=== PATIENT | male | born 1950 | race Native Hawaiian/Other Pacific Islander ===

== ENCOUNTER → 2017-11-28 07:16 | Outpatient (CLI) | payer MEDICARE, SELFPAY ==
[2017-11-28 08:35] LABS: Add Manual Diff / Slide Review NO; Basophils Percent Auto 0.7 % (0-2); Eosinophils Percent Auto 3.4 % (2-4); Hematocrit 37.6 % (41-53); Hemoglobin 12.7 g/dL (13.5-17.5); Lymphocytes Percent Auto 16.5 % (25-40); Mean Corpuscular HGB Conc 33.7 % (30-36); Mean Corpuscular Hemoglobin 31.2 PG (26-34); Mean Corpuscular Volume 92.5 fL (80-100); Neutrophils Absolute Auto 6700 /uL (3000-5900); Neutrophils Percent Auto 66.4 % (50-75); Platelet Count 250 X10^3/uL (150-400); Red Blood Cell Count 4.07 X10^6/uL (4.5-5.9); Red Cell Distribution Width 14.6 % (11.6-14.8); White Blood Cell Count 10.1 X10^3/uL (4.5-11.0)
[2017-11-28 08:49] LABS: Alanine Aminotransferase 24 IU/L (21-72); Albumin 4.1 g/dL (3.5-5.0); Albumin Globulin Ratio 1.2 (1.0-2.8); Alkaline Phosphatase 85 U/L (38-126); Aspartate Aminotransferase 17 IU/L (17-59); BUN Creatinine Ratio 22.9 (6-22); Bilirubin Total 0.4 mg/dL (0.2-1.3); Blood Urea Nitrogen 16 mg/dL (9-20); C-Reactive Protein Quant 7.9 mg/dL (<1.0); Calcium 9.5 mg/dL (8.4-10.2); Carbon Dioxide 30 mmol/L (22-32); Chloride 102 mmol/L (98-107); Estimated Glomerular Filt Rate > 60.0 mL/min (>60); Globulin 3.4 g/dL (1.7-4.1); Glucose 92 mg/dL (80-110); HEMOLYSIS 22 (0-50); Potassium 4.1 mmol/L (3.4-5.1); Sodium 139 mmol/L (137-145); Total Protein 7.5 g/dL (6.3-8.2)
[2017-11-28 09:03] LABS: Erythrocyte Sedimentation Rate 66 MM/HR (0-15)
== END ==
PROVIDERS: PCP Internal Medicine; Visit Provider Physician Assistant Medical
DX: M05.79 Rheumatoid arthritis with rheumatoid factor of multiple sites without organ or systems involvement (principal)
CPT/HCPCS: 36415; 80053; 85025; 85651; 86140

== ENCOUNTER → 2017-12-31 08:11 | Outpatient (CLI) | payer MEDICARE, SELFPAY ==
[2017-12-31 08:59] LABS: Add Manual Diff / Slide Review NO; Basophils Percent Auto 1.1 % (0-2); Eosinophils Percent Auto 2.4 % (2-4); Hematocrit 37.6 % (41-53); Hemoglobin 12.8 g/dL (13.5-17.5); Lymphocytes Percent Auto 23.8 % (25-40); Mean Corpuscular HGB Conc 34.1 % (30-36); Mean Corpuscular Hemoglobin 31.4 PG (26-34); Mean Corpuscular Volume 92.1 fL (80-100); Monocytes Percent Auto 9.7 % (3-14); Neutrophils Absolute Auto 4900 /uL (3000-5900); Platelet Count 368 X10^3/uL (150-400); Red Blood Cell Count 4.09 X10^6/uL (4.5-5.9); White Blood Cell Count 7.8 X10^3/uL (4.5-11.0)
[2017-12-31 09:11] LABS: Alanine Aminotransferase 21 IU/L (21-72); Albumin 4.3 g/dL (3.5-5.0); Albumin Globulin Ratio 1.2 (1.0-2.8); Alkaline Phosphatase 76 U/L (38-126); Aspartate Aminotransferase 18 IU/L (17-59); BUN Creatinine Ratio 28.6 (6-22); Bilirubin Total 0.5 mg/dL (0.2-1.3); Blood Urea Nitrogen 20 mg/dL (9-20); C-Reactive Protein Quant 8.2 mg/dL (<1.0); Calcium 9.7 mg/dL (8.4-10.2); Carbon Dioxide 28 mmol/L (22-32); Chloride 105 mmol/L (98-107); Estimated Glomerular Filt Rate > 60.0 mL/min (>60); Globulin 3.6 g/dL (1.7-4.1); Glucose 108 mg/dL (80-110); HEMOLYSIS < 15 (0-50); Sodium 144 mmol/L (137-145); Total Protein 7.9 g/dL (6.3-8.2)
[2017-12-31 09:27] LABS: Erythrocyte Sedimentation Rate 76 MM/HR (0-15)
[2018-01-03 12:38] LABS: QuantiFERON TB NEGATIVE (Negative)
== END ==
PROVIDERS: Family Provider Internal Medicine; PCP Internal Medicine; Visit Provider Specialist/Technologist Athletic Trainer
DX: M05.79 Rheumatoid arthritis with rheumatoid factor of multiple sites without organ or systems involvement (principal)
CPT/HCPCS: 36415; 80053; 84550; 85025; 85651; 86140; 86480; 86704; 86705; 86706; 86707; 87340; 87350

== ENCOUNTER 2018-05-25 21:05 | Inpatient (IN) | payer MEDICARE, SELFPAY ==
[2018-05-25 21:06] VITALS: PULSE 93; RESP 14; TEMP 36.7; O2SAT 100
[2018-05-25] MEDS: ONDANSETRON 4 MG/2 ML INJ IV (21:50)
[2018-05-25 22:02] VITALS: BP 148/80; PULSE 87; RESP 18; O2SAT 98
[2018-05-25 22:11] LABS: Add Manual Diff / Slide Review NO; Basophils Absolute Auto 0 /uL (0-100); Basophils Percent Auto 0.3 % (0-2); Eosinophils Absolute Auto 0 /uL (0-450); Eosinophils Percent Auto 0.3 % (2-4); Lymphocytes Absolute Auto 200 /uL (1100-4500); Lymphocytes Percent Auto 1.2 % (25-40); Mean Corpuscular HGB Conc 33.4 % (30-36); Mean Corpuscular Hemoglobin 31.7 PG (26-34); Mean Corpuscular Volume 94.9 fL (80-100); Monocytes Absolute Auto 900 /uL (0-900); Neutrophils Absolute Auto 13900 /uL (1500-7000); Neutrophils Percent Auto 92.2 % (50-75); Platelet Count 270 X10^3/uL (150-400); Red Blood Cell Count 4.74 X10^6/uL (4.5-5.9); Red Cell Distribution Width 13.8 % (11.6-14.8); White Blood Cell Count 15.1 X10^3/uL (4.5-11.0)
[2018-05-25 22:13] LABS: INR 1.1 (0.9-1.3); Prothrombin Time 13.1 SECONDS (10.1-12.7)
[2018-05-25 22:16] LABS: PTT Partial Thromboplastin Tim 29 SECONDS (26.4-36.2)
[2018-05-25] MEDS: PANTOPRAZOLE 40 MG VIAL IV (22:40)
[2018-05-25] MEDS: KETOROLAC 60 MG/2 ML VIAL 30 MG IV (22:40)
[2018-05-25] MEDS: SODIUM CHLORIDE 0.9% 1,000 ML 1000 ML IV (22:41)
--- NOTE | 2018-05-25 22:45 | ED_ITS ---
HPI - Nausea/Vomiting/Diarrhea General Chief complaint: Nausea/Vomiting/Diarrhea Stated complaint: nausea / vomiting Time Seen by Provider: 05/25/18 21:41 Source: patient and RN notes reviewed Mode of arrival: ambulatory Limitations: no limitations History of Present Illness HPI Narrative: patient is a 67-year-old male who presents with abdominal pain nausea vomiting and diarrhea ongoing for the last 5 days. He has had nonbloody diarrhea numerous episodes along with numerous episodes of vomiting. He has some epigastric pain. no fever or chills. He has not had any recent travel. No one else is sick. Unable tolerate any fluids. MD complaint: nausea, vomiting, diarrhea and abdominal pain Onset (ago): day(s) (5) Description of Vomiting: watery Description of Diarrhea: watery Location of pain: epigastric Severity: moderate Quality: cramping Pain Consistency: constant Relieving factors: none Exacerbating factors: none Related Data Home Medications Medication Instructions Recorded Confirmed azathioprine 100 mg PO DAILY 05/25/18 05/25/18 leflunomide 20 mg PO DAILY 05/25/18 05/25/18 Allergies Allergy/AdvReac Type Severity Reaction Status Date / Time No Known Drug Allergies Allergy Verified 05/25/18 21:09 Review of Systems Review of Systems GENERAL: Denies chills, fatigue, malaise, fever, sweats, travel HEENT: Denies sinus pain, ear pain, sore throat, difficulty swallowing, neck pain RESPIRATORY: Denies dyspnea, cough, wheezing, hemoptysis, sputum. CARDIOVASCULAR: Denies chest pain, palpitations, orthopnea, edema GASTROINTESTINAL: See HPI : Denies dysuria, frequency, incontinence, hematuria, urinary retention, flank pain. MUSCULOSKELETAL: Denies weakness, joint pain, or bony pain SKIN: No rash, no erythema, no pruritus NEUROLOGIC: Denies weakness, dizziness, headache, numbness, change in speech, confusion PSYCHIATRIC: No concerning psychosocial issues. 12 point review of systems is negative except for those stated above and HPI [facility] Medical History Diverticulitis (Acute) Rheumatoid arthritis (Acute) Family History: Reviewed 05/26/18 by MARGARITA Encinas Social History household members: spouse and children Smoking Status: Former smoker alcohol intake: never substance use type: does not use Exam Initial Vital Signs Initial Vital Signs: Vital Signs Temperature 98.1 F 05/25/18 21:06 Pulse Rate 93 H 05/25/18 21:06 Respiratory Rate 14 05/25/18 21:06 Pulse Oximetry 100 05/25/18 21:06 GENERAL: appears in mild pain distress HEENT: Head atraumatic,EOMI, pupils reactive, face symmetric, dry mucous membranes CARDIOVASCULAR: Regular rate and rhythm without murmurs, rubs or gallops. RESPIRATORY: Breath sounds equal bilaterally, no wheezes rales or rhonchi. ABDOMEN: Soft, slightly obese mild epigastric pain no guarding or rebound no right upper quadrant pain no lower abdominal pain EXTREMITIES: Normal range of motion, no clubbing or edema. Neurovascularly intact NEUROLOGICAL: Alert and oriented x4.Normal gait and speech. SKIN: Warm, dry, no laceration, no petechiae, no rashes or lesions. Course Orders Ordered: ED Orders 05/25/18 21:18 EKG-12 Lead Stat 05/25/18 21:50 Complete Blood Count AUTO DIFF Stat Partial Thromboplastin Time Stat Prothrombin Time INR Stat 05/25/18 22:32 Comprehensive Metabolic Panel Stat Lipase Stat 05/25/18 23:55 Ictotest Urine Stat Urine Microscopic Stat 05/26/18 00:10 US abdomen complete Stat 05/26/18 01:28 Consult to Dietitian, Adult Routine 05/26/18 01:29 Education, smoking cessation ONGOING 05/26/18 06:00 BMP [Basic Metabolic Panel] Routine Complete Blood Count AUTO DIFF Routine Lipase Routine Triglycerides Routine Lactated Ringer's (Lactated Ringers) 1,000 mls @ 150 mls/hr IV CONT JULIO Last Admin: 05/26/18 02:43 Dose: 150 mls/hr Oxycodone HCl (Percolone) 5 mg PO Q6H PRN PRN Reason: Pain, Moderate (4-6) Discontinued Medications Sodium Chloride (Normal Saline 0.9%) 1,000 mls @ 1,000 mls/hr IV BOLUS ONE Stop: 05/25/18 23:36 Last Infusion: 05/25/18 23:39 Dose: 0 mls/hr Admin: 05/25/18 22:41 Dose: 1,000 mls/hr Ketorolac Tromethamine (Toradol) 30 mg IV NOW ONE Stop: 05/25/18 22:38 Last Admin: 05/25/18 22:40 Dose: 30 mg Ondansetron HCl (Zofran) 4 mg IV NOW ONE Stop: 05/25/18 21:18 Last Admin: 05/25/18 21:50 Dose: 4 mg Pantoprazole Sodium (Protonix) 40 mg IV NOW ONE Stop: 05/25/18 22:38 Last Admin: 05/25/18 22:40 Dose: 40 mg Vital Signs - 8 hr 05/25/18 21:06 05/25/18 22:02 05/25/18 23:03 Temperature 98.1 F Pulse Rate 93 H 87 93 H Respiratory Rate 14 18 18 Blood Pressure Blood Pressure [Left Arm] 148/80 H 123/66 Pulse Oximetry 100 98 99 05/25/18 23:54 05/26/18 00:23 05/26/18 00:51 Temperature 98.1 F Pulse Rate 93 H 93 H 97 H Respiratory Rate 16 16 16 Blood Pressure Blood Pressure [Left Arm] 104/54 L 108/68 Pulse Oximetry 99 99 97 05/26/18 01:05 05/26/18 02:47 Temperature 99.6 F Pulse Rate 102 H Respiratory Rate 16 Blood Pressure 128/73 Blood Pressure [Left Arm] Pulse Oximetry 97 97 MDM - Nausea/Vomiting/Diarrhea Lab Data Attestation: I reviewed the patient's lab results. Result diagrams: 05/25/18 21:50 05/25/18 22:32 Lab Results 05/25/18 05/25/18 05/25/18 Range/Units 21:50 21:50 22:32 WBC 15.1 H (4.5-11.0) X10^3/uL RBC 4.74 (4.5-5.9) X10^6/uL Hgb 15.0 (13.5-17.5) g/dL Hct 45.0 (41-53) % MCV 94.9 (80-100) fL MCH 31.7 (26-34) PG MCHC 33.4 (30-36) % RDW 13.8 (11.6-14.8) % Plt Count 270 (150-400) X10^3/uL Neut % (Auto) 92.2 H (50-75) % Lymph % (Auto) 1.2 L (25-40) % [place] % (Auto) 6.0 (3-14) % Eos % (Auto) 0.3 L (2-4) % Baso % (Auto) 0.3 (0-2) % Neut # (Auto) 62381 H (9888-4418) /uL Lymph # (Auto) 200 L (7204-4277) /uL [place] # (Auto) 900 (0-900) /uL Eos # (Auto) 0 (0-450) /uL Baso # (Auto) 0 (0-100) /uL PT 13.1 H (10.1-12.7) SECONDS INR 1.1 (0.9-1.3) APTT 29 (26.4-36.2) SECONDS Sodium 140 (137-145) mmol/L Potassium 3.5 (3.4-5.1) mmol/L Chloride 102 (98-107) mmol/L Carbon Dioxide 23 (22-32) mmol/L BUN 22 H (9-20) mg/dL Creatinine 0.70 (0.66-1.25) mg/dL Estimated GFR > 60.0 (>60) mL/min BUN/Creatinine Ratio 31.4 H (6-22) Glucose 123 H (80-110) mg/dL Calcium 10.0 (8.4-10.2) mg/dL Total Bilirubin 0.8 (0.2-1.3) mg/dL AST 21 (17-59) IU/L ALT 25 (21-72) IU/L Alkaline Phosphatase 78 (38-126) U/L Total Protein 8.3 H (6.3-8.2) g/dL Albumin 4.5 (3.5-5.0) g/dL Globulin 3.8 (1.7-4.1) g/dL Albumin/Globulin Ratio 1.2 (1.0-2.8) Lipase 3777 H (23-300) U/L Urine Ictotest (Negative) Urine RBC (0-5/HPF) Urine WBC (0-5/HPF) Urine Bacteria (None) Urine Mucus (Negative) Ur Culture Indicated? 05/25/18 Range/Units 23:55 WBC (4.5-11.0) X10^3/uL RBC (4.5-5.9) X10^6/uL Hgb (13.5-17.5) g/dL Hct (41-53) % MCV (80-100) fL MCH (26-34) PG MCHC (30-36) % RDW (11.6-14.8) % Plt Count (150-400) X10^3/uL Neut % (Auto) (50-75) % Lymph % (Auto) (25-40) % [place] % (Auto) (3-14) % Eos % (Auto) (2-4) % Baso % (Auto) (0-2) % Neut # (Auto) (2666-1222) /uL Lymph # (Auto) (2239-8745) /uL [place] # (Auto) (0-900) /uL Eos # (Auto) (0-450) /uL Baso # (Auto) (0-100) /uL PT (10.1-12.7) SECONDS INR (0.9-1.3) APTT (26.4-36.2) SECONDS Sodium (137-145) mmol/L Potassium (3.4-5.1) mmol/L Chloride (98-107) mmol/L Carbon Dioxide (22-32) mmol/L BUN (9-20) mg/dL Creatinine (0.66-1.25) mg/dL Estimated GFR (>60) mL/min BUN/Creatinine Ratio (6-22) Glucose (80-110) mg/dL Calcium (8.4-10.2) mg/dL Total Bilirubin (0.2-1.3) mg/dL AST (17-59) IU/L ALT (21-72) IU/L Alkaline Phosphatase (38-126) U/L Total Protein (6.3-8.2) g/dL Albumin (3.5-5.0) g/dL Globulin (1.7-4.1) g/dL Albumin/Globulin Ratio (1.0-2.8) Lipase (23-300) U/L Urine Ictotest Negative (Negative) Urine RBC 0-1/hpf (0-5/HPF) Urine WBC 0-1/hpf (0-5/HPF) Urine Bacteria None seen (None) Urine Mucus 2+ H (Negative) Ur Culture Indicated? Cult not indicated Urine Dip Bedside Urine Glucose Negative Bedside Urine Bilirubin + 1 Bedside Urine Ketone ++ 40 Urine Specific [place] 1.030 Bedside Urine Occult Blood +/- Bedside Urine pH 6.0 Bedside Urine Protein + 30 Bedside Urine Urobilinogen - Negative Bedside Urine Nitrite - Negative Bedside Urine Leukocytes - Negative Esterase Imaging Data US - abdomen: Radiologist's impression: biofuels manager report: Gallbladder wall thickness 2.6 mm no neri cholecystic fluid no stones normal size extrahepatic bile ducts mildly dilated. CBD is 7.2 mm. Conclusion mildly dilated common bile duct measuring 7.2 mm. MDM Narrative Medical decision making narrative: Patient has a normal bilirubin and normal LFTs periods mildly dilated common bile duct on ultrasound. Patient is a nondrinker. Cause of pancreatitis: azathioprine, possible Choledocholithiasis: Patient has mild dilated common bile duct but no elevated bilirubin, and no stones identified in gallbladder Alcohol considered unlikely because patient denies drinking though still possible Patient overall is feeling much better. He is able to eat some ice chips which he says helps tremendously. HospitalistMally accepts the patient. Discharge Plan Departure Patient Disposition: Admitted As Inpatient Clinical Impression: Acute pancreatitis, Urinary tract infection Discharge Date/Time: 05/26/18 01:10 Interventions: ED Discharge Assessment Last Done: 05/26/18 01:01 Admit Date/Time: 05/26/18 00:46 Admit Provider: Antwon Bal
[2018-05-25 22:49] LABS: Alanine Aminotransferase 25 IU/L (21-72); Albumin 4.5 g/dL (3.5-5.0); Albumin Globulin Ratio 1.2 (1.0-2.8); Alkaline Phosphatase 78 U/L (38-126); Aspartate Aminotransferase 21 IU/L (17-59); BUN Creatinine Ratio 31.4 (6-22); Bilirubin Total 0.8 mg/dL (0.2-1.3); Blood Urea Nitrogen 22 mg/dL (9-20); Carbon Dioxide 23 mmol/L (22-32); Chloride 102 mmol/L (98-107); Estimated Glomerular Filt Rate > 60.0 mL/min (>60); Globulin 3.8 g/dL (1.7-4.1); Glucose 123 mg/dL (80-110); HEMOLYSIS 17 (0-50); Potassium 3.5 mmol/L (3.4-5.1); Sodium 140 mmol/L (137-145); Total Protein 8.3 g/dL (6.3-8.2)
[2018-05-25 22:57] LABS: Lipase 3777 U/L (23-300)
[2018-05-25 23:03] VITALS: BP 123/66; PULSE 93; RESP 18; O2SAT 99
[2018-05-25 23:54] VITALS: BP 104/54; PULSE 93; RESP 16; O2SAT 99
[2018-05-25 23:58] LABS: Bacteria Urine None Seen
[2018-05-26] VITALS (12 sets, daily range): BP systolic 106–152; BP diastolic 68–90; PULSE 80–102; RESP 16–18; TEMP 36.7–37.6; O2SAT 96–100; BMI 29.9
--- NOTE | 2018-05-26 00:10 | DI.US.S_ITS ---
PROCEDURE: US ABDOMEN COMPLETE INDICATIONS: ruq pain with pancreatitis TECHNIQUE: Real-time scanning was performed of the abdominal and retroperitoneal organs, with image documentation. COMPARISON: [facility], CT, ABDOMEN WITH CONTRAST, 05/24/2014, 8:53. FINDINGS: Liver: Liver is normal in size and homogeneous in echotexture. Gallbladder: No gallstones. No gallbladder wall thickening, pericholecystic fluid or sonographic Mckenzie's sign. Biliary ducts: Intrahepatic bile ducts are non-dilated. Extrahepatic bile duct caliber measures 7 mm. Normal is 6-7 mm or less in diameter, or 10 mm or less post-cholecystectomy. Pancreas: Obscured by overlying bowel gas. Spleen: Spleen is normal in size and homogeneous in echotexture. Kidneys: Kidneys are normal in size and echotexture. Right kidney measures 11.5 cm long; left kidney measures 11.7 cm long. No hydronephrosis or nephrolithiasis. No solid masses. Aorta: Aorta is obscured by overlying bowel gas. Iliacs: Proximal common iliac arteries are obscured by overlying bowel gas. IVC: Intrahepatic inferior vena cava is patent. Miscellaneous: No free abdominal fluid. IMPRESSION: 1. Normal ultrasound appearance of the liver. No gallstones. 2. Prominent common bile duct. Please correlate with serum bilirubin. 3. Pancreas, aorta and proximal common duct arteries are obscured by overlying bowel gas. No significant discrepancy with the shift commander radiology preliminary report. Dictated by: Marylou Smith M.D. on 05/26/2018 at 10:31 Approved by: Marylou Smith M.D. on 05/26/2018 at 10:35
[2018-05-26 00:16] LABS: Culture Indicated Urine Cult Not Indicated; Ictotest Urine Negative (Negative); Mucus Urine 2+ (Negative); RBC Urine 0-1/HPF (0-5/HPF); WBC Urine 0-1/HPF (0-5/HPF)
--- NOTE | 2018-05-26 01:33 | PM.HP.1 ---
History of Present Illness Chief complaint: nausea / vomiting Narrative: The patient is a 67 y/o male who presents to the ED on 05/25/2018 with abdominal pain. Symptom onset is acute, initially noted on 05/21/2017d, progressively worsening. Abdominal pain localized to the epigastric region. Described as constant and of variable intensity. At worse, pain noted to be 8/10. No radiation to the back, extremities, neck or jaw. Associated symptoms include nausea , vomiting (10+ episodes per day, BN, bilious), diarrhea (5 total episodes, no signs of blood loss per rectum), decreased appetite, and inability to tolerate food or fluid. Denies fever and chills. No similar events in the past. Pain relieved by sitting upright or having his small dog sit on top of the abdomen. Did not take any OTC meds for pain relief. No personal or family history of pancreatits, gall bladder disease, or alcohol abuse. Denies abdominal trauma. Currently on immunosuppression with azathioprine and leflunomide for rheumatoid arthritis. Reports using leflunomide for a number of years. Patient recently started taking azathioprine at the beginning of the year. Prior to that he was on Humara for a number of months, but was struggling with discomfort of an injectable medications and for this reason was switched to azathioprine. Initial labs revealed a lipase of 3777. No other evidence of transaminitis. Patient is unable to recall the dose or how he is supposed to be taking the medication. Per ED verification, the dose of azathioprine listed 100 mg PO daily; however, patient may have been taking this medication twice a day. Will need to verify in the morning. PMH: Diverticulitis, RA, chronic immunosuppression (x4-5 yrs), OA, PRIOR tobacco dependence, cannabis use PSH: No prior surgical history reported FHx: Father (D) - diverticulitis, PUD; Mother (D) - dementia SHx: , lives w/ in the home. Works at [employer]. Prior h/o tobacco use, since teenage years until 11 yrs ago (intermittently), 1/2 ppd. No prior h/o heavy EtOH consumption. Reports drinking 2 beers weekly for a number of years, quit 2 yrs ago. Smokes cannabis daily. Allergies: NKDA Patient History Medical History Diverticulitis (Acute) Rheumatoid arthritis (Acute) Family & Social History Family History: Reviewed 05/26/18 by MARGARITA Encinas Social History: household members spouse,children Prior Living Arrangements RV Safety & Behavioral: Feels Safe in Current Yes Environment Been Physically Hurt or No Threatened By a Person Suicidal Ideation Description None Suicide Plan Description No Plan Tobacco & Substance use: Smoking Status Former smoker alcohol intake frequency holiday/special occasion Substance Use Type does not use Meds Home Medications Medication Instructions Recorded Confirmed Type azathioprine 100 mg PO DAILY 05/25/18 05/25/18 History leflunomide 20 mg PO DAILY 05/25/18 05/25/18 History Allergies Allergy/AdvReac Type Severity Reaction Status Date / Time No Known Drug Allergies Allergy Verified 05/25/18 21:09 Review of Systems Review of Systems All systems reviewed & are unremarkable except as noted in HPI and below Exam Vital Signs (past 8 hours): - 05/25/18 21:06 05/25/18 22:02 05/25/18 23:03 Temperature 98.1 F Pulse Rate 93 H 87 93 H Respiratory Rate 14 18 18 Blood Pressure Blood Pressure [Left Arm] 148/80 H 123/66 Pulse Oximetry 100 98 99 05/25/18 23:54 05/26/18 00:23 05/26/18 00:51 Temperature 98.1 F Pulse Rate 93 H 93 H 97 H Respiratory Rate 16 16 16 Blood Pressure Blood Pressure [Left Arm] 104/54 L 108/68 Pulse Oximetry 99 99 97 05/26/18 01:05 Temperature 99.6 F Pulse Rate 102 H Respiratory Rate 16 Blood Pressure 128/73 Blood Pressure [Left Arm] Pulse Oximetry 97 Oxygen Delivery Method Room Air Narrative Exam Narrative: Constitutional: NAD Neurologic: AOx3, no focal neurological deficits, poor memory recall Head: NC, AT Eyes: PERRL, EOMI, no scleral icterus Ears: external ears normal Nose: external nose normal, no rhinorrhea or epistaxis Throat: dry MM, oropharynx w/o exudate Neck: no masses, lymphadenopathy, or JVD Chest / Respiratory: equal chest rise, unlabored respiratory effort, breath sounds diminished Heart / CV: S1S2 Abdomen / GI: round, soft, tenderness of epigastric region, no distention, no guarding or rebound tenderness no periumbilical or flan ecchymosis : no suprapubic tenderness, no CVA Peripheral / Vascular: warm to touch, DP and PT pulses palpable, no edema Musc: full ROM of upper and lower extremities, adequate muscle tone and bulk Skin: no ecchymosis or suspicious lesions / ulcers Objective Labs Result Diagrams: 05/25/18 21:50 05/25/18 22:32 Labs: Laboratory Results - last 24 hr 05/25/18 05/25/18 05/25/18 21:50 21:50 22:32 WBC 15.1 H RBC 4.74 Hgb 15.0 Hct 45.0 MCV 94.9 MCH 31.7 MCHC 33.4 RDW 13.8 Plt Count 270 Neut % (Auto) 92.2 H Lymph % (Auto) 1.2 L [place] % (Auto) 6.0 Eos % (Auto) 0.3 L Baso % (Auto) 0.3 Neut # (Auto) 54029 H Lymph # (Auto) 200 L [place] # (Auto) 900 Eos # (Auto) 0 Baso # (Auto) 0 PT 13.1 H INR 1.1 APTT 29 Sodium 140 Potassium 3.5 Chloride 102 Carbon Dioxide 23 BUN 22 H Creatinine 0.70 Estimated GFR > 60.0 BUN/Creatinine Ratio 31.4 H Glucose 123 H Calcium 10.0 Total Bilirubin 0.8 AST 21 ALT 25 Alkaline Phosphatase 78 Total Protein 8.3 H Albumin 4.5 Globulin 3.8 Albumin/Globulin Ratio 1.2 Lipase 3777 H Urine Ictotest Urine RBC Urine WBC Urine Bacteria Urine Mucus Ur Culture Indicated? 05/25/18 23:55 WBC RBC Hgb Hct MCV MCH MCHC RDW Plt Count Neut % (Auto) Lymph % (Auto) [place] % (Auto) Eos % (Auto) Baso % (Auto) Neut # (Auto) Lymph # (Auto) [place] # (Auto) Eos # (Auto) Baso # (Auto) PT INR APTT Sodium Potassium Chloride Carbon Dioxide BUN Creatinine Estimated GFR BUN/Creatinine Ratio Glucose Calcium Total Bilirubin AST ALT Alkaline Phosphatase Total Protein Albumin Globulin Albumin/Globulin Ratio Lipase Urine Ictotest Negative Urine RBC 0-1/hpf Urine WBC 0-1/hpf Urine Bacteria None seen Urine Mucus 2+ H Ur Culture Indicated? Cult not indicated Assessment & Plan Plan: Assessment/Plan Narrative: Acute pancreatitis, mild Suspected to be drug induced, azathioprine. Thiopurines have predisposition towards pancreatitis. Patient may also be taking a higher dose than prescribed errouneously. No infection or necrosis. Presented with abdominal pain. Elevated lipase of 3777. Abdominal U/S done in ED, results pending, per ED report gallbladder normal. No evidence of organ failure on presentation. No local or systemic complications. Denies fever. WBC 15.1. HR elevated, VS otherwise WNL. - Telemetry monitoring x24 hrs, then aggressive d/c if stable - Aggressive fluid rescusitation w/ LR at 150 ml / hr for a goal of 2.5 to 4L in first 24 hours - Correct e-lyte / metabolic abnormalities - Pain control w/ oxycodone IR 5 mg Q6H prn - Bowel rest. NPO, ok for ice chips. If has persistent N/V then will make strict NPO. - AM Labs: triglycerides, CBC, Lipase, BMP - D/C toxic meds: azathioprine - Abdominal U/S done in ED (gallbladder WNL), final read pending, to follow-up / review - Consider follow-up CT of the abdomen if no clinical improvement in 72 hours Nausea and Bilious Vomiting No episodes since arrival to the ED - Anti-emetics (zofran prn), IVF, bowel rest Chronic immunosuppression (w/ azathioprine and leflunomide) 2/2 underlying h/o of RA, recently started on azathioprine (2-3 weeks ago) - Need to verify medication doses in A.M. w/ patient's pharmacy - Hold both medications at this time Code status discussed. Full Code. No formal health directive. Designates as a surrogate decision maker. VTE prophylaxis w/ SCDs Quality VTE Deep Vein Thrombosis/Pulmonary Embolism Present on Admission: No
--- NOTE | 2018-05-26 01:48 | PC.NURSE ---
Admission note: Received pt from ED in a wheelchair. Pt transferred himself to bed. Oriented pt to room including call light, white board, phone use, and NPO status. Pt AxOX4, during assessment pt reports that he's had an unintentional weight loss of an estimated 20lbs in the last 3 months and that he eats only a 6 inch [employer] sub every day. Pt was unsure of his actual height and weight and reports that he has difficulties with his primary care provider and therefore avoids routine care. Pt also reports that he feels the need to urinate frequently but that when he initiates his stream he does not have a significant output. Pt denies prostate problems but stated he didn't know his urination habits were of concern. Pt denies pain and nausea at this time.
[2018-05-26] MEDS: LACTATED RINGERS 1,000 ML 150 ML IV ×4 (02:43→22:23)
[2018-05-26 06:01] LABS: Add Manual Diff / Slide Review NO; Basophils Absolute Auto 0 /uL (0-100); Basophils Percent Auto 0.2 % (0-2); Eosinophils Absolute Auto 0 /uL (0-450); Eosinophils Percent Auto 0.2 % (2-4); Hematocrit 36.8 % (41-53); Hemoglobin 12.6 g/dL (13.5-17.5); Lymphocytes Absolute Auto 300 /uL (1100-4500); Mean Corpuscular HGB Conc 34.1 % (30-36); Mean Corpuscular Hemoglobin 31.8 PG (26-34); Mean Corpuscular Volume 93.3 fL (80-100); Monocytes Absolute Auto 800 /uL (0-900); Monocytes Percent Auto 7.5 % (3-14); Neutrophils Absolute Auto 10000 /uL (1500-7000); Neutrophils Percent Auto 89.1 % (50-75); Platelet Count 229 X10^3/uL (150-400); Red Blood Cell Count 3.95 X10^6/uL (4.5-5.9); Red Cell Distribution Width 13.6 % (11.6-14.8); White Blood Cell Count 11.3 X10^3/uL (4.5-11.0)
[2018-05-26 06:05] LABS: BUN Creatinine Ratio 25.6 (6-22); Blood Urea Nitrogen 23 mg/dL (9-20); Carbon Dioxide 24 mmol/L (22-32); Chloride 104 mmol/L (98-107); Estimated Glomerular Filt Rate > 60.0 mL/min (>60); Glucose 101 mg/dL (80-110); HEMOLYSIS < 15 (0-50); Potassium 3.5 mmol/L (3.4-5.1); Sodium 137 mmol/L (137-145); Triglycerides 86 mg/dL (35-150)
[2018-05-26 06:17] LABS: Lipase 3248 U/L (23-300)
--- NOTE | 2018-05-26 10:10 | PC.NURSE ---
)0940 Pt oob to brp, did not use call light, Pt had a very sml amt of pale tanish colored BM. very odorous, guiac +. Pt denies pain, BS hyper active, Pt states has been taking in ice chips thru out the noc shift. 1000 Dr Marie updated of guiac + stool this AM, states Pt may have few ice chips.
--- NOTE | 2018-05-26 10:40 | PM.EVENT ---
Date Patient Seen: 05/26/18 Chart reviewed patient seen and examined. Patient is a 67-year-old male admitted for acute pancreatitis. Review of the abdominal ultrasound shows no evidence of gallstones. Patient continues to have some abdominal discomfort. His major complaint today is feeling thirsty and he is requesting ice chips. His lipase is still elevated however improving. Will continue to keep him NPO continue IV fluids, pain medications and recheck labs in the morning.
--- NOTE | 2018-05-26 12:02 | CM.DANOTE ---
Discharge Planning/Care Management CM Discharge Assessment Start: 05/26/18 11:58 Freq: Status: Active Protocol: Document 05/26/18 11:59 (Rec: 05/26/18 12:02 [email or web address]) Discharge Planning Assessment Assigned Transit Coach Operator ANTONINA Hannon Advance Directives? No History Provided By Patient Medical Record Has Patient been admitted in last 30 No days? Prior Living Arrangements RV Household Members spouse children Type of transporation used prior to Drives own vehicle admit Independent with ADL's Yes Is patient alert and oriented? Yes Caregiver for Another No Barriers to Discharge No Discharge Plan Home Transportation Arrangement Spouse can provide. Referrals Initiated None needed Additional Comment Payer is Medicare. PCP is Dr. Quispe. Per Dr. Marie patient remains on NPO. Lipase remains elevated and ultrasound does not show any evidence of gallstones. Met with patient: patient was eager to eat and go home. 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 at the [facility]. Patient does not anticipate any discharge needs or concerns. Inpatient Status as of 05/26/18 Whiteboard Updated in Patient Room with Yes name and ext. # of Transit Coach Operator Please Provide Date Initial DC 05/26/18 Assessment Was Performed
[2018-05-26] MEDS: OXYCODONE IR 5 MG TABLET PO ×2 (13:24→19:53)
[2018-05-26] MEDS: ONDANSETRON 4 MG/2 ML INJ IV (22:23)
[2018-05-27] VITALS (13 sets, daily range): BP systolic 117–148; BP diastolic 51–84; PULSE 66–81; RESP 16–20; TEMP 36.4–36.9; O2SAT 96–100
[2018-05-27] MEDS: DEXTROSE 50 % IN WATER 25 GM/50 ML SYRINGE IV (00:15)
--- NOTE | 2018-05-27 01:05 | PC.NURSE ---
mini shifter 2330: Assumed care of pt with safe hand off. Safety checks done. Pt denies pain at this time. 0000: Notified from JOHN Strange pt BG is 67. MARGARITA Bal notified. Will follow hypoglycemic protocol and give pt 1/2 amp of D50. 0015: 1/2 amp D50 given. Pt reports elbow pain shortly after administering D50. Pain resolves over time. Pt informed that currently MARGARITA Bal would like to hold all immuno-suppressive medications r/t his pancreatitis. Pt expresses concern about not taking Arava r/t RA pain. Pt has not taken medication in 2 days and becomes very debilitated r/t pain when not taking medication. 0100: MARGARITA Bal notified of pt's BG improvement to 94 and pt's concern to not taking medication. Will review Dr. Krishnamurthy not and determine if pt will be restarted on Arava.
[2018-05-27] MEDS: LACTATED RINGERS 1,000 ML 150 ML IV (04:56)
[2018-05-27 05:43] LABS: Add Manual Diff / Slide Review NO; Basophils Absolute Auto 100 /uL (0-100); Basophils Percent Auto 0.6 % (0-2); Eosinophils Absolute Auto 500 /uL (0-450); Hematocrit 35.1 % (41-53); Hemoglobin 12.2 g/dL (13.5-17.5); Lymphocytes Absolute Auto 1500 /uL (1100-4500); Lymphocytes Percent Auto 15.5 % (25-40); Mean Corpuscular HGB Conc 34.8 % (30-36); Mean Corpuscular Hemoglobin 32.5 PG (26-34); Mean Corpuscular Volume 93.4 fL (80-100); Monocytes Absolute Auto 1200 /uL (0-900); Monocytes Percent Auto 12.5 % (3-14); Neutrophils Absolute Auto 6500 /uL (1500-7000); Neutrophils Percent Auto 66.4 % (50-75); Platelet Count 218 X10^3/uL (150-400); Red Blood Cell Count 3.76 X10^6/uL (4.5-5.9); Red Cell Distribution Width 13.8 % (11.6-14.8); White Blood Cell Count 9.8 X10^3/uL (4.5-11.0)
[2018-05-27 05:57] LABS: Alanine Aminotransferase 29 IU/L (21-72); Albumin 3.4 g/dL (3.5-5.0); Albumin Globulin Ratio 1.1 (1.0-2.8); Alkaline Phosphatase 59 U/L (38-126); Aspartate Aminotransferase 16 IU/L (17-59); BUN Creatinine Ratio 14.3 (6-22); Bilirubin Total 0.4 mg/dL (0.2-1.3); Blood Urea Nitrogen 10 mg/dL (9-20); Calcium 9.1 mg/dL (8.4-10.2); Carbon Dioxide 24 mmol/L (22-32); Chloride 105 mmol/L (98-107); Estimated Glomerular Filt Rate > 60.0 mL/min (>60); Globulin 3.1 g/dL (1.7-4.1); Glucose 74 mg/dL (80-110); HEMOLYSIS < 15 (0-50); Potassium 3.1 mmol/L (3.4-5.1); Sodium 138 mmol/L (137-145); Total Protein 6.5 g/dL (6.3-8.2)
[2018-05-27 06:01] LABS: Lipase 1739 U/L (23-300)
--- NOTE | 2018-05-27 10:50 | PM.PN.1 ---
Subjective Date Patient Seen: 05/27/18 Interval history: The patient is a 67-year-old male admitted to the hospital with acute pancreatitis. He denies any abdominal pain today. He reports being hungry. His lipase initially was over 3700. Today's lipase is down to 1700. Patient's diet will be advanced to a clear liquid diet. He is requesting to resume his immunosuppressive therapy. Patient took his leflunomide earlier today. Exam Vital Signs (past 8 hours): - 05/27/18 04:00 05/27/18 06:03 05/27/18 08:43 Temperature 97.9 F 98.2 F Pulse Rate 81 78 Respiratory Rate 20 18 Blood Pressure 117/59 L 133/73 Pulse Oximetry 97 97 97 05/27/18 09:44 Temperature Pulse Rate Respiratory Rate Blood Pressure Pulse Oximetry 97 Oxygen Delivery Method Room Air Narrative Exam Narrative: Pleasant gentleman resting comfortably in no obvious distress Lungs: Clear to auscultation Cardiac exam regular rate rhythm normal S1-S2 Abdomen: Soft nontender nondistended without hepatosplenomegaly, no palpable masses noted Extremities: No edema Objective Labs Result Diagrams: 05/27/18 05:08 05/27/18 05:08 Labs: Laboratory Results - last 24 hr 05/27/18 05/27/18 05/27/18 05:08 05:08 05:08 WBC 9.8 RBC 3.76 L Hgb 12.2 L Hct 35.1 L MCV 93.4 MCH 32.5 MCHC 34.8 RDW 13.8 Plt Count 218 Neut % (Auto) 66.4 D Lymph % (Auto) 15.5 L [place] % (Auto) 12.5 Eos % (Auto) 5.0 H Baso % (Auto) 0.6 Neut # (Auto) 6500 Lymph # (Auto) 1500 [place] # (Auto) 1200 H Eos # (Auto) 500 H Baso # (Auto) 100 Sodium 138 Potassium 3.1 L Chloride 105 Carbon Dioxide 24 BUN 10 Creatinine 0.70 Estimated GFR > 60.0 BUN/Creatinine Ratio 14.3 Glucose 74 L Calcium 9.1 Total Bilirubin 0.4 AST 16 L ALT 29 Alkaline Phosphatase 59 Total Protein 6.5 Albumin 3.4 L Globulin 3.1 Albumin/Globulin Ratio 1.1 Lipase 1739 H Assessment & Plan (1) Acute pancreatitis: Problem details: Acute pancreatitis, present on admission. Will advance to clear liquid diet. Will decrease IV hydration. Will recheck labs in the morning. Qualifiers: Acute pancreatitis complication: unspecified Pancreatitis type: other Qualified Code(s): K85.80 - Other acute pancreatitis without necrosis or infection Current visit: Yes Status: Acute (2) Hypokalemia: Problem details: Hypokalemia. Will replace Current visit: Yes Status: Acute (3) Rheumatoid arthritis: Problem details: Rheumatoid arthritis, will continue usual immunosuppressive therapy Current visit: Yes Status: Acute Quality VTE Deep Vein Thrombosis/Pulmonary Embolism Present on Admission: No
[2018-05-27] MEDS: KCL 40 MEQ IN NS 1,000 ML 100 MEQ IV ×2 (11:49→21:34)
[2018-05-27 11:59] LABS: Lipase 1134 U/L (23-300)
[2018-05-28 03:00] VITALS: O2SAT 99
[2018-05-28 05:00] VITALS: BP 114/73; PULSE 68; RESP 16; TEMP 37.1; O2SAT 99
[2018-05-28 05:49] LABS: Add Manual Diff / Slide Review NO; Basophils Absolute Auto 0 /uL (0-100); Basophils Percent Auto 0.5 % (0-2); Eosinophils Absolute Auto 300 /uL (0-450); Eosinophils Percent Auto 3.8 % (2-4); Hematocrit 33.3 % (41-53); Hemoglobin 11.5 g/dL (13.5-17.5); Lymphocytes Absolute Auto 1500 /uL (1100-4500); Lymphocytes Percent Auto 17.8 % (25-40); Mean Corpuscular HGB Conc 34.4 % (30-36); Mean Corpuscular Hemoglobin 32.3 PG (26-34); Mean Corpuscular Volume 93.7 fL (80-100); Monocytes Absolute Auto 800 /uL (0-900); Neutrophils Absolute Auto 5800 /uL (1500-7000); Neutrophils Percent Auto 67.9 % (50-75); Platelet Count 215 X10^3/uL (150-400); Red Blood Cell Count 3.55 X10^6/uL (4.5-5.9); Red Cell Distribution Width 13.4 % (11.6-14.8); White Blood Cell Count 8.5 X10^3/uL (4.5-11.0)
[2018-05-28 05:54] LABS: Alanine Aminotransferase 27 IU/L (21-72); Albumin 3.3 g/dL (3.5-5.0); Albumin Globulin Ratio 1.1 (1.0-2.8); Alkaline Phosphatase 61 U/L (38-126); Aspartate Aminotransferase 14 IU/L (17-59); BUN Creatinine Ratio 8.6 (6-22); Bilirubin Total 0.3 mg/dL (0.2-1.3); Blood Urea Nitrogen 6 mg/dL (9-20); Calcium 8.7 mg/dL (8.4-10.2); Carbon Dioxide 25 mmol/L (22-32); Chloride 107 mmol/L (98-107); Estimated Glomerular Filt Rate > 60.0 mL/min (>60); Glucose 96 mg/dL (80-110); HEMOLYSIS < 15 (0-50); Potassium 3.6 mmol/L (3.4-5.1); Sodium 140 mmol/L (137-145); Total Protein 6.3 g/dL (6.3-8.2)
[2018-05-28] MEDS: KCL 40 MEQ IN NS 1,000 ML 100 MEQ IV (07:21)
[2018-05-28 07:35] VITALS: BP 139/78; PULSE 79; RESP 18; TEMP 36.6; O2SAT 99
[2018-05-28 09:50] VITALS: O2SAT 99
[2018-05-28] MEDS: LEFLUNOMIDE 20 MG TABLET PO (10:00)
--- NOTE | 2018-05-28 10:53 | PM.DS.1 ---
History of Present Illness Date Patient Seen: 05/28/18 Chief complaint: nausea / vomiting Narrative: The patient is a 57-year-old female who presented to the ED with respiratory distress. Patient is noted to have frequent COPD exacerbations. At present time reports a 5 day history of cough with worsening purulence (yellow/green/brown). Temperature at home 99.2. Associated symptoms include subjective chills, headache, and neck discomfort. Denies chest pain, palpitations, dizziness, lightheadedness, abdominal pain, GI distress, dysuria/change in micturition, and signs of blood loss. Recently boyfriend was ill with flu-like symptoms. No specific exacerbating or remitting factors noted Discharge Providers Date of admission: 05/26/18 00:46 Primary care physician: Isabella Quispe MD Consults: 05/26/18 01:28 Consult to Dietitian, Adult Routine Comment: Reason For Exam: Pt reports est 20 pound unintentional weight loss Discharge provider: Genia Marie MD Discharge Date: 05/28/18 Summary Discharge Diagnosis: Acute pancreatitis present on admission Rheumatoid arthritis, chronic, present on admission Hospital Course: Patient is 67-year-old male with a history of rheumatoid arthritis on chronic immunosuppressive therapy with Imuran and leflunomide. Patient presented to the hospital with abrupt onset of acute abdominal pain. His lipase on admission was 3700. The patient was made NPO given IV hydration and pain medications. His Imuran was held. His lipase decreased from 8292-4492. The patient's diet was advanced to a clear liquid diet yesterday. An abdominal ultrasound was obtained which revealed no evidence gallstones. Patient's diet was advanced to a low-fat diet which she tolerated without difficulty. He was deemed appropriate for discharge and arrangements were made for him to be discharged home. Status at Discharge Functional status at discharge: independent ambulation Overall status at discharge: patient is back to baseline Time Spent with Patient Less than 30 minutes Exam Vital Signs (past 8 hours): - 05/28/18 03:00 05/28/18 05:00 05/28/18 07:35 Temperature 98.8 F 97.8 F Pulse Rate 68 79 Respiratory Rate 16 18 Blood Pressure 114/73 139/78 Pulse Oximetry 99 99 99 Oxygen Delivery Method Room Air Narrative Exam Narrative: Pleasant gentleman in no acute distress Lungs: Clear to auscultation Cardiac exam: Regular rate rhythm normal S1-S2 Abdomen: Soft mildly distended nontender without hepatosplenomegaly Extremities: No edema Objective Labs Result Diagrams: 05/28/18 05:16 05/28/18 05:16 Labs: Laboratory Results - last 24 hr 05/27/18 05/28/18 05/28/18 11:00 05:16 05:16 WBC 8.5 RBC 3.55 L Hgb 11.5 L Hct 33.3 L MCV 93.7 MCH 32.3 MCHC 34.4 RDW 13.4 Plt Count 215 Neut % (Auto) 67.9 Lymph % (Auto) 17.8 L [place] % (Auto) 10.0 Eos % (Auto) 3.8 Baso % (Auto) 0.5 Neut # (Auto) 5800 Lymph # (Auto) 1500 [place] # (Auto) 800 Eos # (Auto) 300 Baso # (Auto) 0 Sodium 140 Potassium 3.6 Chloride 107 Carbon Dioxide 25 BUN 6 L Creatinine 0.70 Estimated GFR > 60.0 BUN/Creatinine Ratio 8.6 Glucose 96 Calcium 8.7 Total Bilirubin 0.3 AST 14 L ALT 27 Alkaline Phosphatase 61 Total Protein 6.3 Albumin 3.3 L Globulin 3.0 Albumin/Globulin Ratio 1.1 Lipase 1134 H Discharge Plan Discharge Med Rec/Prescriptions Prescriptions: No Action azathioprine 50 mg Tablet 100 mg PO DAILY RF: 0 leflunomide 20 mg Tablet 20 mg PO DAILY RF: 0 Follow up/Referrals: Isabella Quispe MD [Primary Care Provider] - Discharge Orders: Discharge (Order); Ordered 05/28/18 Ordered By: Genia Marie Discharge Data Primary Care Provider: Isabella Quispe Attending Provider: Antwon Bal Admit Date/Time: 05/26/18 00:46 Quality VTE Deep Vein Thrombosis/Pulmonary Embolism Present on Admission: No
[2018-05-28 11:40] VITALS: BP 135/73; PULSE 73; RESP 18; TEMP 36.8; O2SAT 99
--- NOTE | 2018-05-28 11:41 | PM.DS.1 ---
History of Present Illness Chief complaint: nausea / vomiting Narrative: The patient is a 57-year-old female who presented to the ED with respiratory distress. Patient is noted to have frequent COPD exacerbations. At present time reports a 5 day history of cough with worsening purulence (yellow/green/brown). Temperature at home 99.2. Associated symptoms include subjective chills, headache, and neck discomfort. Denies chest pain, palpitations, dizziness, lightheadedness, abdominal pain, GI distress, dysuria/change in micturition, and signs of blood loss. Recently boyfriend was ill with flu-like symptoms. No specific exacerbating or remitting factors noted Discharge Providers Date of admission: 05/26/18 00:46 Primary care physician: Isabella Quispe MD Consults: 05/26/18 01:28 Consult to Dietitian, Adult Routine Comment: Reason For Exam: Pt reports est 20 pound unintentional weight loss Discharge provider: Genia Marie MD Discharge Date: 05/28/18 Exam Vital Signs (past 8 hours): - 05/28/18 05:00 05/28/18 07:35 Temperature 98.8 F 97.8 F Pulse Rate 68 79 Respiratory Rate 16 18 Blood Pressure 114/73 139/78 Pulse Oximetry 99 99 Oxygen Delivery Method Room Air Objective Labs Result Diagrams: 05/28/18 05:16 05/28/18 05:16 Labs: Laboratory Results - last 24 hr 05/27/18 05/28/18 05/28/18 11:00 05:16 05:16 WBC 8.5 RBC 3.55 L Hgb 11.5 L Hct 33.3 L MCV 93.7 MCH 32.3 MCHC 34.4 RDW 13.4 Plt Count 215 Neut % (Auto) 67.9 Lymph % (Auto) 17.8 L [place] % (Auto) 10.0 Eos % (Auto) 3.8 Baso % (Auto) 0.5 Neut # (Auto) 5800 Lymph # (Auto) 1500 [place] # (Auto) 800 Eos # (Auto) 300 Baso # (Auto) 0 Sodium 140 Potassium 3.6 Chloride 107 Carbon Dioxide 25 BUN 6 L Creatinine 0.70 Estimated GFR > 60.0 BUN/Creatinine Ratio 8.6 Glucose 96 Calcium 8.7 Total Bilirubin 0.3 AST 14 L ALT 27 Alkaline Phosphatase 61 Total Protein 6.3 Albumin 3.3 L Globulin 3.0 Albumin/Globulin Ratio 1.1 Lipase 1134 H Discharge Plan Discharge Plan Patient Disposition: Home Discharge Med Rec/Prescriptions Prescriptions: Continue azathioprine 50 mg Tablet 100 mg PO DAILY RF: 0 leflunomide 20 mg Tablet 20 mg PO DAILY RF: 0 Follow up/Referrals: Isabella Quispe MD [Primary Care Provider] - Provider Discharge Instructions Diet: Low-fat Activity: aS tolerated Discharge Data Primary Care Provider: Isabella Quispe Attending Provider: Antwon Bal Admit Date/Time: 05/26/18 00:46 Quality VTE Deep Vein Thrombosis/Pulmonary Embolism Present on Admission: No
--- NOTE | 2018-05-28 14:02 | PC.NURSE ---
discharge pt denies pain. states he tolerates food without increase in pain or nausea. PIV removed without issue. d/c instructions provided to pt and . aware to f/u with PCP and also physical testing supervisor. pt received home meds from pharmacy and were returned to him. pt left in w/c with [employer] escort.
== END 2018-05-28 13:20 | disposition home or self-care (01) | DRG 439 ==
LOC: ED 05-26 00:34 → AC 05-26 00:46
PROVIDERS: Internal Medicine; Admitting Provider Nurse Practitioner Gerontology; Emergency Provider Emergency Medicine; Family Provider Internal Medicine; PCP Internal Medicine; Visit Provider Nurse Practitioner Gerontology
DX: K85.30 Drug induced acute pancreatitis without necrosis or infection (principal); D62 Acute posthemorrhagic anemia; T45.1X5A Adverse effect of antineoplastic and immunosuppressive drugs, initial encounter; M06.9 Rheumatoid arthritis, unspecified; Z87.891 Personal history of nicotine dependence; E87.6 Hypokalemia
CPT/HCPCS: 36415; 36591; 76700; 80048; 80053; 81003; 81015; 82962; 83690; 84478; 85025; 85610; 85730; 93005; 93010; 96361; 96374; 96375; 99283; 99284; C9113; J1650; J1885; J2405; J3480

== ENCOUNTER 2018-07-11 20:44 | Emergency (ER) | payer MEDICARE, SELFPAY ==
[2018-05-26 01:07] VITALS: BMI 29.9
[2018-07-11 20:49] VITALS: BP 132/93; PULSE 109; RESP 16; TEMP 36.8; O2SAT 99; BMI 31.5
--- NOTE | 2018-07-11 21:41 | DI.RAD.S_ITS ---
PROCEDURE: XR ACUTE ABDOMEN SERIES INDICATIONS: Abdominal pain, N/V?D TECHNIQUE: One view chest and two views of the abdomen were acquired. COMPARISON: None. FINDINGS: Surgical changes and devices: None. Chest: Lungs are clear. Heart size is normal. No pleural effusions. No pneumoperitoneum. Abdomen: Bowel gas pattern is normal. No suspicious calcifications. Visualized solid organ contours appear normal. Bones: No suspicious bony lesions. IMPRESSION: 1. No evidence acute pulmonary process. 2. Unremarkable abdominal films. Dictated by: Arsen Nicole M.D. on 07/12/2018 at 9:07 Approved by: Arsen Nicole M.D. on 07/12/2018 at 9:08
[2018-07-11] MEDS: ONDANSETRON 4 MG/2 ML INJ IV (22:17)
[2018-07-11] MEDS: SODIUM CHLORIDE 0.9% 1,000 ML 1000 ML IV (22:17)
[2018-07-11 22:24] LABS: Add Manual Diff / Slide Review NO; Basophils Absolute Auto 100 /uL (0-100); Basophils Percent Auto 0.5 % (0-2); Eosinophils Absolute Auto 0 /uL (0-450); Hematocrit 46.3 % (41-53); Hemoglobin 15.6 g/dL (13.5-17.5); Lymphocytes Absolute Auto 1000 /uL (1100-4500); Lymphocytes Percent Auto 10.8 % (25-40); Mean Corpuscular HGB Conc 33.8 % (30-36); Mean Corpuscular Hemoglobin 31.6 PG (26-34); Mean Corpuscular Volume 93.4 fL (80-100); Monocytes Absolute Auto 1200 /uL (0-900); Monocytes Percent Auto 12.8 % (3-14); Neutrophils Absolute Auto 6900 /uL (1500-7000); Neutrophils Percent Auto 75.9 % (50-75); Platelet Count 328 X10^3/uL (150-400); Red Blood Cell Count 4.95 X10^6/uL (4.5-5.9); White Blood Cell Count 9.1 X10^3/uL (4.5-11.0)
[2018-07-11 22:32] LABS: Alanine Aminotransferase 37 IU/L (21-72); Albumin 4.8 g/dL (3.5-5.0); Albumin Globulin Ratio 1.1 (1.0-2.8); Alkaline Phosphatase 88 U/L (38-126); Aspartate Aminotransferase 32 IU/L (17-59); Bilirubin Total 0.4 mg/dL (0.2-1.3); Blood Urea Nitrogen 26 mg/dL (9-20); Carbon Dioxide 22 mmol/L (22-32); Chloride 98 mmol/L (98-107); Estimated Glomerular Filt Rate 55.1 mL/min (>60); Globulin 4.3 g/dL (1.7-4.1); Glucose 112 mg/dL (80-110); HEMOLYSIS 21 (0-50); Lipase 214 U/L (23-300); Potassium 3.1 mmol/L (3.4-5.1); Sodium 136 mmol/L (137-145); Total Protein 9.1 g/dL (6.3-8.2)
--- NOTE | 2018-07-11 23:05 | ED.NAVMDI ---
HPI - Nausea/Vomiting/Diarrhea General Chief complaint: Abdominal Pain Stated complaint: says really sick Time Seen by Provider: 07/11/18 20:52 Source: patient and family Mode of arrival: ambulatory Limitations: no limitations History of Present Illness HPI Narrative: 67-year-old male smoker with history of pancreatitis presents with a chief complaint of 3-4 days of nausea vomiting and copious episodes of diarrhea. He has generalized abdominal discomfort which gradually worsened until he has a bowel movement at which point it improves until the next BM. He denies fever but has had chills. He denies international travel, exposure to bad food or recent antibiotic use. He does have sick contacts with very similar symptoms, some which have been in the emergency department today for the same. Related Data Home Medications Medication Instructions Recorded Confirmed azathioprine 100 mg PO DAILY 05/25/18 05/25/18 leflunomide 20 mg PO DAILY 05/25/18 05/25/18 Previous Rx's Medication Instructions Recorded diphenoxylate-atropine [Lomotil] 1 tab PO Q6H PRN #10 tab 07/11/18 ondansetron 4 mg PO Q8-12H PRN #10 tab 07/11/18 Allergies Allergy/AdvReac Type Severity Reaction Status Date / Time No Known Drug Allergies Allergy Verified 05/25/18 21:09 Review of Systems Constitutional Denies chills, Denies fever(s), Denies lethargy and Denies weakness Eyes Denies change in vision, Denies eye discharge, Denies irritation and Denies loss of vision ENT Ears, Nose, Mouth, and Throat: Denies change in voice, Denies neck pain and Denies sore throat Cardiovascular Denies chest pain, Denies irregular heart rhythm, Denies lightheadedness, Denies palpitations, Denies dyspnea, Denies dyspnea on exertion and Denies orthopnea Respiratory Denies cough, Denies dyspnea, Denies dyspnea on exertion and Denies wheezing Gastrointestinal Gastrointestinal: Reports abdominal pain, Denies change in bowel habits, Reports diarrhea, Reports nausea and Reports vomiting Genitourinary Denies hematuria, Denies flank pain, Denies urinary incontinence and Denies urinary urgency Musculoskeletal Denies neck pain Integumentary/Breasts Denies pruritus, Denies erythema, Denies rash and Denies wounds Neurologic Denies confusion, Denies loss of vision and Denies weakness Psychiatric Denies anxiety, Denies confusion, Denies depression, Denies homicidal ideation and Denies suicidal ideation Endocrine Denies palpitations Hematologic/Lymphatic Denies easy bruising Allergic/Immunologic Denies wheezing [facility] Medical History Diverticulitis (Acute) Rheumatoid arthritis (Acute) Social History household members: spouse and children Smoking Status: Former smoker alcohol intake: never substance use type: does not use Social History household members: spouse and children Smoking Status: Former smoker alcohol intake: never substance use type: does not use Exam Narrative Exam Narrative: GENERAL: 67-year-old male appears stated age, clearly uncomfortable holding an emesis bag HEAD: Atraumatic. Normocephalic. No temporal or scalp tenderness. EYES: Pupils equal round and reactive. Extraocular motions intact. No scleral icterus. No injection or drainage. ENT: Nose without bleeding, purulent drainage or septal hematoma. Throat without erythema, tonsillar hypertrophy or exudate. Uvula midline. Airway patent. NECK: Trachea midline. No JVD or lymphadenopathy. Supple, nontender, no meningeal signs. CARDIOVASCULAR: Regular rate and rhythm without murmurs, gallops, or rubs. RESPIRATORY: Clear to auscultation. Breath sounds equal bilaterally. No wheezes, rales, or rhonchi. GASTROINTESTINAL: Abdomen soft, non-tender, nondistended. No hepato-splenomegaly, or palpable masses. No guarding. EXTREMITIES: No clubbing, cyanosis, or edema. No joint tenderness, effusion, or edema noted. BACK: Nontender without deformity or crepitance. No flank tenderness. NEURO: AOx3. SKIN: No rash or erythema. Initial Vital Signs Initial Vital Signs: Vital Signs Temperature 98.2 F 07/11/18 20:49 Pulse Rate 109 H 07/11/18 20:49 Respiratory Rate 16 07/11/18 20:49 Blood Pressure 132/93 H 07/11/18 20:49 Pulse Oximetry 99 07/11/18 20:49 Course Orders Ordered: ED Orders 07/11/18 21:41 XR acute abdomen series Stat 07/11/18 22:10 Complete Blood Count AUTO DIFF Stat Comprehensive Metabolic Panel Stat Lipase Stat 07/12/18 00:01 GI Panel (Film Array) Stat UA Complete [Urinalysis and Microscopic] Stat Discontinued Medications Sodium Chloride (Normal Saline 0.9%) 1,000 mls @ 1,000 mls/hr IV BOLUS ONE Stop: 07/11/18 22:37 Last Infusion: 07/12/18 00:21 Dose: 0 mls/hr Admin: 07/11/18 22:17 Dose: 1,000 mls/hr Ondansetron HCl (Zofran) 4 mg IV NOW ONE Stop: 07/11/18 21:39 Last Admin: 07/11/18 22:17 Dose: 4 mg Ondansetron HCl (Zofran Odt Prepack) 1 bottle MISC SEEINSTR ONE Stop: 07/12/18 00:32 Last Admin: 07/12/18 00:32 Dose: 1 bottle Potassium Chloride (Potassium Chloride) 40 meq PO NOW ONE Stop: 07/11/18 22:46 Last Admin: 07/11/18 23:10 Dose: 40 meq Vital Signs - 8 hr 07/11/18 20:49 07/12/18 00:28 Temperature 98.2 F Pulse Rate 109 H 83 Respiratory Rate 16 14 Blood Pressure 132/93 H Blood Pressure [Left Arm] 133/78 Pulse Oximetry 99 99 MDM - Nausea/Vomiting/Diarrhea Medical Records Attestation: I reviewed the patient's medical records. Lab Data Attestation: I reviewed the patient's lab results. Result diagrams: 07/11/18 22:10 07/11/18 22:10 Lab Results 07/11/18 07/11/18 07/12/18 Range/Units 22:10 22:10 00:01 WBC 9.1 (4.5-11.0) X10^3/uL RBC 4.95 (4.5-5.9) X10^6/uL Hgb 15.6 (13.5-17.5) g/dL Hct 46.3 (41-53) % MCV 93.4 (80-100) fL MCH 31.6 (26-34) PG MCHC 33.8 (30-36) % RDW 14.0 (11.6-14.8) % Plt Count 328 (150-400) X10^3/uL Neut % (Auto) 75.9 H (50-75) % Lymph % (Auto) 10.8 L (25-40) % [place] % (Auto) 12.8 (3-14) % Eos % (Auto) 0.0 L (2-4) % Baso % (Auto) 0.5 (0-2) % Neut # (Auto) 6900 (1680-3028) /uL Lymph # (Auto) 1000 L (6903-3047) /uL [place] # (Auto) 1200 H (0-900) /uL Eos # (Auto) 0 (0-450) /uL Baso # (Auto) 100 (0-100) /uL Sodium 136 L (137-145) mmol/L Potassium 3.1 L (3.4-5.1) mmol/L Chloride 98 (98-107) mmol/L Carbon Dioxide 22 (22-32) mmol/L BUN 26 H (9-20) mg/dL Creatinine 1.30 H (0.66-1.25) mg/dL Estimated GFR 55.1 L (>60) mL/min BUN/Creatinine Ratio 20.0 (6-22) Glucose 112 H (80-110) mg/dL Calcium 10.0 (8.4-10.2) mg/dL Total Bilirubin 0.4 (0.2-1.3) mg/dL AST 32 (17-59) IU/L ALT 37 (21-72) IU/L Alkaline Phosphatase 88 (38-126) U/L Total Protein 9.1 H (6.3-8.2) g/dL Albumin 4.8 (3.5-5.0) g/dL Globulin 4.3 H (1.7-4.1) g/dL Albumin/Globulin Ratio 1.1 (1.0-2.8) Lipase 214 (23-300) U/L Urine Color Urine Appearance Urine pH (4.5-8.0) Ur Specific [place] (1.000-1.035) Urine Protein (Negative) Urine Glucose (UA) (Negative) g/dL Urine Ketones (NEGATIVE) Urine Occult Blood (Negative) Urine Nitrate (Negative) Urine Bilirubin (NEGATIVE) Urine Urobilinogen (0.2) E.U./dL Ur Leukocyte Esterase (NEGATIVE) Urine RBC (0-5/HPF) Urine WBC (0-5/HPF) Urine Bacteria (None) Hyaline Casts (None) Granular Casts (None) WBC Casts (1-5/LPF) Ur Culture Indicated? Stl C. cay[place]anensis PCR Not detected (Not Detect) Stool Rotavirus (PCR) Not detected (Not Detect) Stool Adenovirus (PCR) Not detected (Not Detect) Stool Astrovirus (PCR) Not detected (Not Detect) Stool Cryptosporidium PCR Not detected (Not Detect) Stl E.coli Shiga Tox PCR Not detected (Not Detect) St Sh/Enteroin Ecoli PCR Not detected (Not Detect) Stool E coli O157 PCR Not Reportable Stl Enterotoxigenic E PCR Not detected (Not Detect) Stool EPEC (PCR) Not detected (Not Detect) Stl E. histolytica PCR Not detected (Not Detect) Stool Giardia Lamblia PCR Not detected (Not Detect) Stool Sapovirus (PCR) Not detected (Not Detect) Stl P. shigelloides PCR Not detected (Not Detect) St Y.enterocolitica PCR Not detected (Not Detect) Stool Vibrio (PCR) Not detected (Not Detect) Stl Vibrio cholerae PCR Not detected (Not Detect) Stl Enteroaggr Ecoli PCR Not detected (Not Detect) Stl Norovirus GI/GII PCR Not detected (Not Detect) Campylobacter (PCR) Not detected (Not Detect) C. difficile Tox (PCR) Not detected (Not Detect) Salmonella (PCR) Not detected (Not Detect) 07/12/18 Range/Units 00:01 WBC (4.5-11.0) X10^3/uL RBC (4.5-5.9) X10^6/uL Hgb (13.5-17.5) g/dL Hct (41-53) % MCV (80-100) fL MCH (26-34) PG MCHC (30-36) % RDW (11.6-14.8) % Plt Count (150-400) X10^3/uL Neut % (Auto) (50-75) % Lymph % (Auto) (25-40) % [place] % (Auto) (3-14) % Eos % (Auto) (2-4) % Baso % (Auto) (0-2) % Neut # (Auto) (4068-8135) /uL Lymph # (Auto) (7830-7010) /uL [place] # (Auto) (0-900) /uL Eos # (Auto) (0-450) /uL Baso # (Auto) (0-100) /uL Sodium (137-145) mmol/L Potassium (3.4-5.1) mmol/L Chloride (98-107) mmol/L Carbon Dioxide (22-32) mmol/L BUN (9-20) mg/dL Creatinine (0.66-1.25) mg/dL Estimated GFR (>60) mL/min BUN/Creatinine Ratio (6-22) Glucose (80-110) mg/dL Calcium (8.4-10.2) mg/dL Total Bilirubin (0.2-1.3) mg/dL AST (17-59) IU/L ALT (21-72) IU/L Alkaline Phosphatase (38-126) U/L Total Protein (6.3-8.2) g/dL Albumin (3.5-5.0) g/dL Globulin (1.7-4.1) g/dL Albumin/Globulin Ratio (1.0-2.8) Lipase (23-300) U/L Urine Color Dark yellow Urine Appearance Sl cloudy Urine pH 5.5 (4.5-8.0) Ur Specific [place] >=1.030 H (1.000-1.035) Urine Protein 2+ H (Negative) Urine Glucose (UA) Negative (Negative) g/dL Urine Ketones 1+ H (NEGATIVE) Urine Occult Blood Trace-intact (Negative) Urine Nitrate Negative (Negative) Urine Bilirubin Negative (NEGATIVE) Urine Urobilinogen 0.2 (0.2) E.U./dL Ur Leukocyte Esterase Negative (NEGATIVE) Urine RBC None seen (0-5/HPF) Urine WBC 0-1/hpf (0-5/HPF) Urine Bacteria Occasional (0-1) (None) Hyaline Casts 30-100/lpf (None) Granular Casts 5-10/lpf (None) WBC Casts 0-1/lpf (1-5/LPF) Ur Culture Indicated? Cult not indicated Stl C. cayetanensis PCR (Not Detect) Stool Rotavirus (PCR) (Not Detect) Stool Adenovirus (PCR) (Not Detect) Stool Astrovirus (PCR) (Not Detect) Stool Cryptosporidium PCR (Not Detect) Stl E.coli Shiga Tox PCR (Not Detect) St Sh/Enteroin Ecoli PCR (Not Detect) Stool E coli O157 PCR Stl Enterotoxigenic E PCR (Not Detect) Stool EPEC (PCR) (Not Detect) Stl E. histolytica PCR (Not Detect) Stool Giardia Lamblia PCR (Not Detect) Stool Sapovirus (PCR) (Not Detect) Stl P. shigelloides PCR (Not Detect) St Y.enterocolitica PCR (Not Detect) Stool Vibrio (PCR) (Not Detect) Stl Vibrio cholerae PCR (Not Detect) Stl Enteroaggr Ecoli PCR (Not Detect) Stl Norovirus GI/GII PCR (Not Detect) Campylobacter (PCR) (Not Detect) C. difficile Tox (PCR) (Not Detect) Salmonella (PCR) (Not Detect) MDM Narrative Medical decision making narrative: 67-year-old male presents with nausea, vomiting diarrhea in the absence of travel, bad food or use of antibiotics. His GI panel was negative. He feels better with fluids and had his potassium replaced. Discharge Plan Departure Patient Disposition: Home Clinical Impression: Hypokalemia, Gastroenteritis Interventions: ED Discharge Assessment Last Done: 07/12/18 00:40 Instructions: DI for Viral Gastroenteritis -- Adult Activity Restrictions/Additional Instructions: 1. Drink plenty of fluids with frequent small sips. 2. For the next 24 hours a clear liquid diet is advised. After that please employ a brat diet which would include bananas, rice, apples, toast. 3. Please take medications as directed. 4. Please follow-up with your doctor in the next 1-2 days. Call the office for an appointment. 5. Please return to the emergency Department for any worsening or persistent symptoms, such as increasing pain or fever. Prescriptions: New diphenoxylate-atropine [Lomotil] 2.5-0.025 mg tablet 1 tab PO Q6H PRN (Reason: diarrhea) Qty: 10 RF: 0 ondansetron 4 mg tablet,disintegrating 4 mg PO Q8-12H PRN (Reason: nausea and vomiting) Qty: 10 RF: 0 No Action azathioprine 50 mg Tablet 100 mg PO DAILY RF: 0 leflunomide 20 mg Tablet 20 mg PO DAILY RF: 0 Referrals: Isabella Quispe MD [Primary Care Provider] -
[2018-07-11] MEDS: POTASSIUM CHLORIDE 20 MEQ/15 ML UDC 40 MEQ PO (23:10)
[2018-07-12 00:09] LABS: RBC Urine None Seen (0-5/HPF)
[2018-07-12 00:13] LABS: Appearance Urine UA SL CLOUDY; Glucose Urine UA NEGATIVE (Negative); Ketones Urine UA 1+ (NEGATIVE); Leukocyte Esterase Urine UA NEGATIVE (NEGATIVE); Nitrite Urine UA NEGATIVE (Negative); Occult Blood Urine UA TRACE-INTACT (Negative); Protein Urine UA 2+ (Negative); Specific Gravity Urine UA >=1.030 (1.000-1.035); Urobilinogen Urine UA 0.2 E.U./dL (0.2); pH Urine UA 5.5 (4.5-8.0)
[2018-07-12 00:26] LABS: Color Urine UA Dark Yellow
[2018-07-12 00:28] VITALS: BP 133/78; PULSE 83; RESP 14; O2SAT 99
[2018-07-12 00:28] LABS: Bilirubin Urine UA Negative (NEGATIVE)
[2018-07-12 00:29] LABS: Hyaline Casts Urine 30-100/LPF
[2018-07-12 00:30] LABS: Granular Casts Urine 5-10/LPF
[2018-07-12 00:31] LABS: WBC Urine 0-1/HPF (0-5/HPF); White Blood Cell Casts Urine 0-1/LPF (1-5/LPF)
[2018-07-12 00:32] LABS: Bacteria Urine Occasional (0-1)
[2018-07-12] MEDS: ONDANSETRON 4 MG ODT PREPACK 1 BOTTLE MISC (00:32)
[2018-07-12 00:33] LABS: Culture Indicated Urine Cult Not Indicated
[2018-07-12 01:37] LABS: Adenovirus F 40/41 Not Detected (Not Detect); Astrovirus Not Detected (Not Detect); Campylobacter Not Detected (Not Detect); Clostridium difficile toxin AB Not Detected (Not Detect); Cryptosporidium Not Detected (Not Detect); Cyclospora cayetanensis Not Detected (Not Detect); Entamoeba histolytica Not Detected (Not Detect); Enteroaggregative E.coli Not Detected (Not Detect); Enteropathogenic E.coli Not Detected (Not Detect); Enterotoxigenic E.coli It/st Not Detected (Not Detect); Giardia lamblia Not Detected (Not Detect); Norovirus GI/GII Not Detected (Not Detect); Plesiomonsa shigelloides Not Detected (Not Detect); Rotavirus A Not Detected (Not Detect); Salmonella Not Detected (Not Detect); Sapovirus Not Detected (Not Detect); Shiga-like toxin-prod E.coli Not Detected (Not Detect); Shigella/Enteroinvasive E.coli Not Detected (Not Detect); Vibrio Not Detected (Not Detect); Vibrio cholerae Not Detected (Not Detect); Yersinia enterocolitica Not Detected (Not Detect)
== END 2018-07-12 00:40 | disposition home or self-care (01) ==
PROVIDERS: Emergency Provider Emergency Medicine; Family Provider Internal Medicine; PCP Internal Medicine
DX: E87.6 Hypokalemia (principal); K52.9 Noninfective gastroenteritis and colitis, unspecified
CPT/HCPCS: 36591; 74022; 80053; 81001; 83690; 85025; 87507; 96361; 96374; 99283; 99284; J2405

== ENCOUNTER → 2023-08-11 12:58 | Outpatient (CLI) | payer MEDICARE, MEDICAID, SELFPAY ==
[2018-05-26 01:07] VITALS: BMI 29.9
--- NOTE | 2023-08-11 13:02 | DI.RAD.S_ITS ---
PROCEDURE: XR CERVICAL SPINE 4V OR 5V INDICATIONS: neck pain TECHNIQUE: 6 views of the cervical spine acquired. COMPARISON: [facility], CR, XR CERVICAL SPINE WITH FLEXION EXTENSION, 09/11/2020, 16:42. FINDINGS: Bones: No fractures or dislocations to the T1 level. This space height loss most pronounced at C5-C6. Small vertebral body osteophytes. Uncovertebral joint hypertrophy. Oblique images demonstrate no bony foraminal stenoses. Soft tissues: No prevertebral soft tissue swelling. IMPRESSION: Moderate to severe degenerative changes in the cervical spine. Slight progression compared to 2020. Dictated by: Alvin Gamez M.D. on 08/11/2023 at 16:53 Approved by: Alvin Gamez M.D. on 08/11/2023 at 16:56
== END ==
PROVIDERS: PCP Physician Assistant; Referring Provider Anesthesiology; Visit Provider Anesthesiology
DX: M47.812 Spondylosis without myelopathy or radiculopathy, cervical region (principal); M54.2 Cervicalgia; R06.9 Unspecified abnormalities of breathing
CPT/HCPCS: 72050; 99214